=== PATIENT | female | born 1980 | race Caucasian/White ===

== ENCOUNTER 2017-04-03 10:46 | Inpatient (IN) | payer OTHER ==
[~2017-04-03] VITALS: Ht 165.1 cm; Wt 2.7 kg
[~2017-04-03 10:46] MED LIST: KETO10TA2 PO; MULTIVITAMINS1 EAC1; OXYC1TAB9 PO
[2017-04-03] MEDS ORDERED: ATABEX DHA 200200 MG PO (14:11)
== END 2017-04-06 13:58 | DRG 766 ==
LOC: OB/GYN 10:46 → LDR 10:46 → O/R 13:25 → OB/GYN 15:08
PROVIDERS: Obstetrics & Gynecology
PROC: 0UL70ZZ Occlusion of Bilateral Fallopian Tubes, Open Approach (ICD-10-PCS; 2017-04-03)
PROC: 4A1HXCZ Monitoring of Products of Conception, Cardiac Rate, External Approach (ICD-10-PCS; 2017-04-03)
PROC: 10D00Z1 Extraction of Products of Conception, Low, Open Approach (ICD-10-PCS; principal; 2017-04-03 12:00)
DX: O64.1XX0 Obstructed labor due to breech presentation, not applicable or unspecified (principal); Z3A.37 37 weeks gestation of pregnancy; Z37.0 Single live birth; Z30.2 Encounter for sterilization

== ENCOUNTER 2020-11-14 13:52 | Emergency (ER) | payer OTHER ==
[~2020-11-14] VITALS: Ht 165.1 cm; Wt 68.0 kg
[~2020-11-14 13:52] MED LIST changes: +ATABEX DHA 200200 MG PO
== END 2020-11-14 19:35 | disposition home or self-care (01) ==
LOC: ER 13:52
DX: S06.0X0A Concussion without loss of consciousness, initial encounter (principal); X58.XXXA Exposure to other specified factors, initial encounter; Y92.89 Other specified places as the place of occurrence of the external cause